=== PATIENT | male | born 1995 | race American Indian/Alaskan Native ===

== ENCOUNTER 2021-11-23 10:21 | Emergency (ER) | payer SELFPAY ==
[2021-11-23 10:37] VITALS: BP 119/64
== END 2021-11-25 09:28 | disposition left against medical advice (07) ==
LOC: ED 10:21
DX: R10.30 Lower abdominal pain, unspecified (principal); M79.659 Pain in unspecified thigh; Z53.21 Procedure and treatment not carried out due to patient leaving prior to being seen by health care provider

== ENCOUNTER 2021-12-05 04:15 | Emergency (ER) | payer SELFPAY ==
[2021-12-05 08:16] VITALS: BP 110/74
[2021-12-05] MEDS ORDERED: LIDOCAINE-MPF (1%) 10 MG/1 ML VIAL 5 ML INFILTRATI ONE (08:29)
[2021-12-05] MEDS ORDERED: KETOROLAC 10 MG TAB PO ONE (08:29)
--- NOTE | 2021-12-05 09:08 | Emergency Department Report ---
ED Male HPI - General Chief complaint: Urogenital-Male Stated complaint: GENITAL PAIN AND DISCHARGE Time Seen by Provider: 12/05/21 08:08 Source: patient Mode of arrival: Ambulatory Limitations: No Limitations - History of Present Illness Initial comments: 26-year-old black male with no past medical history presents to the emergency department for evaluation of 1 month history of worsening sores agenda to the area then developed penile discharge several days ago. He states that he has had some intermittent abdominal pain but denies fever, dysuria, nausea, vomiting. He states that he has open sores to his penis and scrotal areas. He states that when he urinates, urine gets on his sores and increases the pain. He admits to having unprotected sex with a new partner. He states that he did home STD tests and was told that he had gonorrhea and chlamydia but states that he has not had any treatment for it. MD Complaint: penile discharge, other (Open lesions to penis and scrotal areas) -: Gradual, month(s) (1) Location: penis, right testicle, left testicle Radiation: none Severity: mild, moderate Severity scale (0 -10): 6 Quality: burning Consistency: intermittent Worsens with: urination new sexual partner discharge, rash - Related Data Sexually active: Yes Previous Rx's Medication Instructions Recorded Last Taken Type DOXYCYCLINE Hyclate [Vibramycin] 100 mg PO BID 7 Days #14 capsule 12/05/21 Unknown Rx Valacyclovir HCl [Valtrex] 1,000 mg PO BID 10 Days #20 tab 12/05/21 Unknown Rx Allergies Allergy/AdvReac Type Severity Reaction Status Date / Time No Known Allergies Allergy Verified 12/05/21 04:24 ED Review of Systems ROS: Stated complaint: GENITAL PAIN AND DISCHARGE Other details as noted in HPI Comment: All other systems reviewed and negative Constitutional: denies: chills, fever Respiratory: denies: shortness of breath Cardiovascular: denies: chest pain, palpitations Gastrointestinal: denies: abdominal pain, nausea, vomiting Genitourinary: discharge. denies: dysuria Musculoskeletal: denies: back pain Skin: lesions Neurological: denies: headache ED Past Medical Hx - Social History Smoking Status: Never Smoker - Medications Home Medications: Home Medications Medication Instructions Recorded Confirmed Last Taken Type DOXYCYCLINE Hyclate [Vibramycin] 100 mg PO BID 7 Days #14 capsule 12/05/21 Unknown Rx Valacyclovir HCl [Valtrex] 1,000 mg PO BID 10 Days #20 tab 12/05/21 Unknown Rx ED Physical Exam - General Limitations: No Limitations General appearance: alert, in no apparent distress - Head Head exam: Present: atraumatic, normocephalic - Eye Eye exam: Present: normal appearance. Absent: conjunctival injection - Neck Neck exam: Present: normal inspection, full ROM. Absent: tenderness, lymphadenopathy - Respiratory Respiratory exam: Present: normal lung sounds bilaterally. Absent: respiratory distress, wheezes, rales, rhonchi, stridor, chest wall tenderness - Cardiovascular Cardiovascular Exam: Present: bradycardia, normal heart sounds - GI/Abdominal GI/Abdominal exam: Present: soft, normal bowel sounds. Absent: distended, tenderness, guarding, rebound, rigid - exam: Present: urethral discharge. Absent: scrotal swelling, circumcision External exam: Present: swelling, lesions (Noted to have open lesions over entire shaft of penis and scrotal area.) - Extremities Exam Extremities exam: Present: normal inspection, normal capillary refill. Absent: pedal edema, joint swelling, calf tenderness - Back Exam Back exam: Present: normal inspection. Absent: CVA tenderness (R), CVA tenderness (L), vertebral tenderness - Neurological Exam Neurological exam: Present: alert, oriented X3, normal gait - Psychiatric Psychiatric exam: Present: normal affect, normal mood - Skin Skin exam: Present: warm, dry, normal color ED Course Vital Signs 12/05/21 12/05/21 12/05/21 04:24 08:15 08:46 Temperature 98.3 F 98.9 F Pulse Rate 59 L 76 Respiratory 18 14 14 Rate Blood Pressure 105/67 Blood Pressure 110/74 [Left] O2 Sat by Pulse 99 100 Oximetry ED Medical Decision Making - Medical Decision Making 26-year-old black male with no past medical history presents to the emergency department for evaluation of 1 month history of worsening sores agenda to the area then developed penile discharge several days ago. He states that he has had some intermittent abdominal pain but denies fever, dysuria, nausea, vomiting. He states that he has open sores to his penis and scrotal areas. He states that when he urinates, urine gets on his sores and increases the pain. He admits to having unprotected sex with a new partner. He states that he did home STD tests and was told that he had gonorrhea and chlamydia but states that he has not had any treatment for it. Physical exam consistent with outbreak of genital herpes. Symptoms consistent with probable gonorrhea or chlamydia. Patient given Rocephin 500 mg IM x1 in the emergency department and will be discharged home with 7-day course of doxycycline along with 10 days of Valtrex. Patient advised to practice safe sex, notify partner so that they can be examined and treated, take medications as directed, and follow-up with his primary care provider if no improvement or worsening symptoms. He is advised to return to the emergency department as needed. He verbalizes understanding of and agreement with plan of care Critical care attestation.: If time is entered above; I have spent that time in minutes in the direct care of this critically ill patient, excluding procedure time. ED Disposition Clinical Impression: Genital herpes in men, Urethritis Disposition: 01 HOME / SELF CARE / HOMELESS Is pt being admited?: No Does the pt Need Aspirin: No Condition: Stable Instructions: Urethritis, Adult, Genital Herpes Additional Instructions: Take medications as prescribed. Follow-up with primary care provider if no improvement or worsening symptoms. Return to the emergency department as needed. Prescriptions: Valacyclovir HCl [Valtrex] 1,000 mg PO BID 10 Days #20 tab DOXYCYCLINE Hyclate [Vibramycin] 100 mg PO BID 7 Days #14 capsule Referrals: PHIL HALL MD [Primary Care Provider] - 3-5 Days Forms: STI Treatment and Prevention, Work/School Release Form(ED) Time of Disposition: 09:08
== END 2021-12-05 09:14 | disposition home or self-care (01) ==
LOC: ED 04:15
DX: A60.02 Herpesviral infection of other male genital organs (principal)
CPT/HCPCS: 96372; 99282; J0696; J3490